=== PATIENT | female | born 1980 | race African-American/Black ===

== ENCOUNTER → 2018-03-30 | Outpatient (CLI) | payer BC, OTHER | END | disposition home or self-care (01) | LOC: US 08:19 | DX: M79.89 Other specified soft tissue disorders (principal) | CPT/HCPCS: 76882 ==

== ENCOUNTER 2018-04-21 09:26 | Day surgery (SDC) | payer BC ==
[2018-04-21] MEDS: IV RINGERS,LACTATED 1000ML 1,000 ML IV (07:00)
[~2018-04-21 09:26] MED LIST: LIDOCAINE 1% PF 2 ML VIAL. ID; MORPHINE SULFATE 2 MG/ML DISP.SYRIN. IV; ONDANSETRON PF 4 MG/2 ML VIAL. IV; PROCHLORPERAZINE 10 MG/2 ML VIAL. IV; fentaNYL PF VIAL 100 MCG/2 ML VIAL IV
[2018-04-21] MEDS ORDERED: ceFAZolin 2GM PREMIX 2 GM/50 ML BAG IV (10:00)
[2018-04-21] MEDS ORDERED: PROPOFOL 20 ML IV (10:40)
[2018-04-21] MEDS ORDERED: MIDAZOLAM HCL/PF 2 MG/2 ML VIAL. (10:40)
[2018-04-21] MEDS ORDERED: fentaNYL PF VIAL 100 MCG/2 ML VIAL (10:40)
[2018-04-21] MEDS ORDERED: FAMOTIDINE 20 MG/2 ML VIAL (10:40)
[2018-04-21] MEDS ORDERED: DEXAMETHASONE SOD PHOS 20 MG/5 ML VIAL. (10:40)
[2018-04-21] MEDS ORDERED: LIDOCAINE 1% PF 5 ML VIAL. (10:40)
[2018-04-21] MEDS ORDERED: ONDANSETRON PF 4 MG/2 ML VIAL. (10:40)
[2018-04-21] MEDS ORDERED: SUCCINYLCHOLINE 200 MG/10 ML VIAL. (10:49)
[2018-04-21] MEDS: BUPIVACAINE-EPI 0.25%-1:200000 50 ML VIAL. (11:14)
[2018-04-21] MEDS ORDERED: PHENYLEPHRINE in 0.9% NACL PF 1 MG/10 ML SYRINGE. IV (11:19)
[2018-04-21 11:20] LABS: NEG OBC UR NEG; POS OBC UR POS
[2018-04-21 11:21] LABS: U PREG PATIENT NEGATIVE (NEG)
[2018-04-21] MEDS ORDERED: ePHEDrine PF IN SALINE 50 MG/5 ML DISP.SYRIN IV (11:30)
[2018-04-21] MEDS ORDERED: DESFLURANE > 120 MINUTES IH (11:44)
[2018-04-21] MEDS: HYDROcodone/APAP 5/325MG 1 TAB TABLET PO (13:01)
== END 2018-04-21 13:36 | disposition home or self-care (01) ==
LOC: SURG 09:26
DX: D17.21 Benign lipomatous neoplasm of skin and subcutaneous tissue of right arm (principal); D17.22 Benign lipomatous neoplasm of skin and subcutaneous tissue of left arm; I10 Essential (primary) hypertension; E66.9 Obesity, unspecified; Z68.41 Body mass index [BMI] 40.0-44.9, adult; K21.9 Gastro-esophageal reflux disease without esophagitis; M19.90 Unspecified osteoarthritis, unspecified site; Z82.49 Family history of ischemic heart disease and other diseases of the circulatory system; Z83.3 Family history of diabetes mellitus; Z80.3 Family history of malignant neoplasm of breast
CPT/HCPCS: 23071; 81025; A7015; J0330; J0690; J1100; J2250; J2370; J2405; J2704; J3010; J7120; S0028